=== PATIENT | male | born 1990 | race Hispanic/Latino ===

== ENCOUNTER 2023-08-26 17:37 | Emergency (ER) | payer SELFPAY ==
[~2023-08-26] VITALS: Ht 175.3 cm; Wt 98.0 kg
[2023-08-26] VITALS (14 sets, daily range): BP systolic 112–151; BP diastolic 59–103
[2023-08-26] MEDS ORDERED: ONDANSETRON HCl 4 MG/2 ML SDV IV ONE (17:40)
[2023-08-26] MEDS ORDERED: SODIUM CHLORIDE 0.9% 1,000 ML IV ONE ×2 (17:40→17:45)
[2023-08-26 18:05] LABS: BASO% 0.5 % (0-3); EOS% 0.3 % (0-8); HEMOGLOBIN 16.3 g/dl (14.0-18.0); IMMATURE GRANULOCYTES 0.2 % (0.0-5.0); LYMPH% 11.3 % (15-41); MEAN CELL VOLUME 93.6 fL CALC (80.0-100.0); MEAN CORPUSCULAR HGB 31.8 pG CALC (26.0-32.0); MONO% 9.7 % (2-13); NEUT# 13.69 thou/uL (1.82-7.42); RED BLOOD COUNT 5.13 mill/uL (4.70-6.10); RED CELL DISTRI WIDTH 13.1 % (11.5-15.5)
[2023-08-26 18:18] LABS: ALBUMIN 5.4 g/dL (3.2-5.0); CPK 112 u/l (55-170); CREATININE 2.1 mg/dL (0.7-1.3); ETHYL ALCOHOL 0 mg/dl (0-30); POTASSIUM 4.1 mmol/l (3.5-5.1)
[2023-08-26] MEDS ORDERED: PROMETHAZINE HCL 25 MG/ML AMP IM ONE ×2 (18:25→22:35)
[2023-08-26 20:19] LABS: URINE BLOOD DIPSTICK Negative (NEGATIVE); URINE COLOR Yellow; URINE GLUCOSE - DIPSTICK Negative (NEGATIVE); URINE KETONE 15 mg/dL (NEGATIVE); URINE LEUK ESTERASE Negative (NEGATIVE); URINE NITRITE - DIPSTICK Negative (Negative); URINE PROTEIN - DIPSTICK 30 mg/dL (NEG-TRACE); URINE SPECIFIC GRAVITY 1.015; URINE UROBILINOGEN - DIPSTICK 0.2 E.U./dL (0.2)
[2023-08-26 20:25] LABS: URINE RBC 0-2 RBC/hpf (0-5)
[2023-08-26 20:26] LABS: URINE MUCUS FEW hpf (NONE-FEW)
[2023-08-26 20:27] LABS: URINE BACTERIA RARE hpf
[2023-08-26 20:28] LABS: URINE HYALINE CAST MODERATE lpf (NONE-RARE)
[2023-08-26 21:22] LABS: CREATININE 1.5 mg/dL (0.7-1.3); POTASSIUM 4.7 mmol/l (3.5-5.1)
[2023-08-26] MEDS ORDERED: PROMETHAZINE HCL 25 MG SUP PR ONE (23:15)
[2023-08-26] MEDS ORDERED: HALOPERIDOL LACTATE 5 MG/ML SDV IV ONE (23:20)
== END 2023-08-26 23:55 | disposition home or self-care (01) | DRG 392 ==
LOC: ED 17:37
PROVIDERS: Family Medicine
DX: R11.2 Nausea with vomiting, unspecified (principal); F12.90 Cannabis use, unspecified, uncomplicated; Z20.822 Contact with and (suspected) exposure to COVID-19